=== PATIENT | female | born 1935 | race Caucasian/White ===

== ENCOUNTER 2023-03-13 11:04 | Inpatient (IN) | payer MEDICARE, OTHER ==
[2023-03-13 12:06] LABS: #Eosinphils 0.1 10x3/uL (0.0-0.5); #Monocytes 0.7 10x3/uL (0.0-1.1); #Neutrophils 2.4 10x3/uL (1.5-8.4); %Basophils 0.8 % (0.0-2.0); %Eosinophils 1.1 % (0.0-6.0); %Lymphocytes 40.1 % (18.0-47.0); %Monocytes 12.6 % (0.0-10.0); %Neutrophils 45.2 % (40.0-75.0); Hematocrit 34.8 % (34.9-44.5); Hemoglobin 12.9 g/dL (12.0-15.5); Mean Corpuscular HGB CONC 37.1 g/dL (32.0-36.0); Mean Corpuscular Hemoglobin 29.9 pg (27.0-33.0); Mean Corpuscular Volume 80.6 fl (81.6-98.3); Mean Platelet Volume 9.8 fl (7.4-10.4); Platelet Count 208 10x3/uL (150-450); RBC Distribution Width 11.7 % (11.5-14.5); Red Blood Cell (RBC) Count 4.32 10x6/uL (3.90-5.03); White Blood Cell (WBC) Count 5.3 10x3/uL (3.5-10.5)
[2023-03-13 12:24] LABS: Troponin I Less than 0.010 ng/mL (< 0.028)
[2023-03-13 12:28] LABS: ALT (SGPT) 12 U/L (8-55); AST (SGOT) 21 U/L (5-34); Albumin 3.1 g/dL (3.4-4.8); Alkaline Phosphatase 83 U/L (40-110); Anion Gap 16 mmol/L (10-20); BUN (Urea Nitrogen) 6 mg/dL (9.8-20.1); Bilirubin, Total 0.9 mg/dL (0.2-1.2); Calc. Creatinine Clearance 0 mL/min (70-130); Carbon Dioxide 15 mmol/L (23-31); Chloride 92 mmol/L (98-107); Estimated GFR 87; Globulin 2.2 g/dL (2.4-3.5); Glucose 88 mg/dL (83-110); Protein, Total 5.3 g/dL (5.8-8.1)
[2023-03-13 12:32] LABS: SARS-CoV-2 NAA Rapid Test Not Detected (NotDetected)
[2023-03-13 12:50] LABS: Critical Call Chemistry ERS.JM3@1249; Sodium 119 mmol/L (136-145)
[2023-03-13] MEDS ORDERED: Ondansetron PF 4 MG/2 ML Vial IVP PRN (13:19)
[2023-03-13] MEDS ORDERED: Acetaminophen 325 MG TAB PO PRN (13:19)
[2023-03-13] MEDS ORDERED: Sodium Chloride 0.9% 1,000 ML IV SCH (13:30)
[2023-03-13] MEDS ORDERED: Bacitracin 1 PK ONE (13:57)
[2023-03-13 14:52] LABS: Phosphorus 2.5 mg/dL (2.3-4.7)
[2023-03-13 14:54] LABS: Magnesium 1.3 mg/dL (1.6-2.6)
[2023-03-13 14:58] LABS: Cardiac Risk 3.7 (Less than 4.5)
[2023-03-13] MEDS ORDERED: Sodium Bicarbonate 150 MEQ in Dextrose 5% in Water 1,000 ML IV SCH (18:00)
[2023-03-13] MEDS ORDERED: Magnesium 2 GM/50 ML(in water) 2 GM in Premix 1 BAG IVPB SCH (18:00)
[2023-03-13 18:22] VITALS: BMI 23.3
[2023-03-13 18:55] LABS: Anion Gap 15 mmol/L (10-20); BUN (Urea Nitrogen) 6 mg/dL (9.8-20.1); Calc. Creatinine Clearance 67 mL/min (70-130); Calcium 8.5 mg/dL (7.8-10.44); Carbon Dioxide 17 mmol/L (23-31); Chloride 93 mmol/L (98-107); Estimated GFR 87; Glucose 77 mg/dL (83-110); Potassium 3.9 mmol/L (3.5-5.1); Sodium 121 mmol/L (136-145)
[2023-03-13 19:06] LABS: Free T4 (Free Thyroxine) 1.82 ng/dL (0.70-1.48)
[2023-03-13] MEDS: Famotidine 20 MG TAB PO SCH (20:25)
[2023-03-14 00:53] LABS: Anion Gap 10 mmol/L (10-20); BUN (Urea Nitrogen) 5 mg/dL (9.8-20.1); Calc. Creatinine Clearance 67 mL/min (70-130); Calcium 8.1 mg/dL (7.8-10.44); Carbon Dioxide 23 mmol/L (23-31); Chloride 93 mmol/L (98-107); Estimated GFR 87; Glucose 114 mg/dL (83-110); Potassium 3.5 mmol/L (3.5-5.1); Sodium 122 mmol/L (136-145)
[2023-03-14 03:27] LABS: Uric Acid 3.5 mg/dL (2.6-6.0)
[2023-03-14 06:28] LABS: Anion Gap 13 mmol/L (10-20); BUN (Urea Nitrogen) 4 mg/dL (9.8-20.1); Calc. Creatinine Clearance 66 mL/min (70-130); Calcium 7.9 mg/dL (7.8-10.44); Carbon Dioxide 21 mmol/L (23-31); Chloride 92 mmol/L (98-107); Estimated GFR 87; Glucose 116 mg/dL (83-110); Potassium 3.5 mmol/L (3.5-5.1); Sodium 122 mmol/L (136-145)
[2023-03-14] MEDS ORDERED: Albuterol 2.5 MG (3 mL) NEB NEB PRN (07:25)
[2023-03-14] MEDS ORDERED: Sodium Chloride 0.9% 1,000 ML IV SCH (07:30)
[2023-03-14] MEDS ORDERED: Levothyroxine Sodium 75 MCG TAB PO SCH (07:30)
[2023-03-14 07:50] LABS: Magnesium 1.8 mg/dL (1.6-2.6)
[2023-03-14] MEDS ORDERED: Potassium Chloride 20 MEQ TAB PO SCH (08:00)
[2023-03-14] MEDS: Sodium Bicarbonate Tab 325 MG TAB PO SCH ×3 (08:32→21:53)
[2023-03-14] MEDS: Famotidine 20 MG TAB PO SCH ×2 (08:34→21:53)
[2023-03-14] MEDS ORDERED: Potassium Bicarbonate/Cit Ac 20 MEQ TAB PO SCH (08:45)
[2023-03-14 12:52] LABS: Anion Gap 10 mmol/L (10-20); BUN (Urea Nitrogen) 4 mg/dL (9.8-20.1); Calc. Creatinine Clearance 60 mL/min (70-130); Calcium 8.3 mg/dL (7.8-10.44); Carbon Dioxide 24 mmol/L (23-31); Chloride 92 mmol/L (98-107); Estimated GFR 85; Glucose 115 mg/dL (83-110); Potassium 4.4 mmol/L (3.5-5.1); Sodium 122 mmol/L (136-145)
[2023-03-14] MEDS ORDERED: Magnesium 2 GM/50 ML(in water) 2 GM in Premix 1 BAG IVPB SCH (14:30)
[2023-03-14] MEDS: Montelukast Sodium 10 mg Tablet PO SCH (21:53)
[2023-03-15 04:14] LABS: #Eosinphils 0.2 10x3/uL (0.0-0.5); #Monocytes 0.5 10x3/uL (0.0-1.1); #Neutrophils 1.9 10x3/uL (1.5-8.4); %Basophils 0.9 % (0.0-2.0); %Eosinophils 4.3 % (0.0-6.0); %Lymphocytes 37.4 % (18.0-47.0); %Monocytes 11.1 % (0.0-10.0); %Neutrophils 46.1 % (40.0-75.0); Hematocrit 32.9 % (34.9-44.5); Hemoglobin 12.2 g/dL (12.0-15.5); Mean Corpuscular HGB CONC 37.1 g/dL (32.0-36.0); Mean Corpuscular Hemoglobin 30.2 pg (27.0-33.0); Mean Corpuscular Volume 81.4 fl (81.6-98.3); Platelet Count 187 10x3/uL (150-450); RBC Distribution Width 11.8 % (11.5-14.5); Red Blood Cell (RBC) Count 4.04 10x6/uL (3.90-5.03); White Blood Cell (WBC) Count 4.2 10x3/uL (3.5-10.5)
[2023-03-15 04:27] LABS: ALT (SGPT) 11 U/L (8-55); AST (SGOT) 16 U/L (5-34); Albumin 2.9 g/dL (3.4-4.8); Alkaline Phosphatase 78 U/L (40-110); Anion Gap 9 mmol/L (10-20); BUN (Urea Nitrogen) 4 mg/dL (9.8-20.1); Bilirubin, Total 0.5 mg/dL (0.2-1.2); Calc. Creatinine Clearance 67 mL/min (70-130); Calcium 8.1 mg/dL (7.8-10.44); Carbon Dioxide 22 mmol/L (23-31); Chloride 95 mmol/L (98-107); Estimated GFR 87; Globulin 2.2 g/dL (2.4-3.5); Glucose 101 mg/dL (83-110); Magnesium 1.9 mg/dL (1.6-2.6); Phosphorus 3.5 mg/dL (2.3-4.7); Potassium 4.5 mmol/L (3.5-5.1); Protein, Total 5.1 g/dL (5.8-8.1); Sodium 121 mmol/L (136-145)
[2023-03-15] MEDS ORDERED: Levothyroxine Sodium 75 MCG TAB PO SCH (06:00)
[2023-03-15] MEDS: Levothyroxine Sodium 50 MCG TAB PO SCH (06:08)
[2023-03-15] MEDS: Famotidine 20 MG TAB PO SCH ×2 (09:11→20:40)
[2023-03-15] MEDS: Sodium Bicarbonate Tab 325 MG TAB PO SCH ×2 (09:15→20:40)
[2023-03-15] MEDS ORDERED: Tolvaptan 15 MG TAB PO SCH (09:45)
[2023-03-15] MEDS ORDERED: Sodium Bicarbonate Tab 325 MG TAB PO SCH (11:30)
[2023-03-15 19:03] LABS: Potassium 4.8 mmol/L (3.5-5.1); Sodium 128 mmol/L (136-145)
[2023-03-15] MEDS: Montelukast Sodium 10 mg Tablet PO SCH (20:41)
[2023-03-16 05:36] LABS: Anion Gap 14 mmol/L (10-20); BUN (Urea Nitrogen) 8 mg/dL (9.8-20.1); Calc. Creatinine Clearance 61 mL/min (70-130); Calcium 8.8 mg/dL (7.8-10.44); Carbon Dioxide 20 mmol/L (23-31); Chloride 100 mmol/L (98-107); Estimated GFR 85; Glucose 95 mg/dL (83-110); Magnesium 1.8 mg/dL (1.6-2.6); Potassium 4.7 mmol/L (3.5-5.1); Sodium 129 mmol/L (136-145)
[2023-03-16] MEDS: Levothyroxine Sodium 50 MCG TAB PO SCH (06:38)
[2023-03-16] MEDS ORDERED: Magnesium 2 GM/50 ML(in water) 2 GM in Premix 1 BAG IVPB SCH (09:30)
[2023-03-16] MEDS: Sodium Bicarbonate Tab 325 MG TAB PO SCH ×3 (09:57→20:51)
[2023-03-16] MEDS: Famotidine 20 MG TAB PO SCH ×2 (09:58→20:51)
[2023-03-16] MEDS: Montelukast Sodium 10 mg Tablet PO SCH (22:45)
[2023-03-17 05:04] LABS: Anion Gap 14 mmol/L (10-20); BUN (Urea Nitrogen) 12 mg/dL (9.8-20.1); Calc. Creatinine Clearance 55 mL/min (70-130); Calcium 8.8 mg/dL (7.8-10.44); Carbon Dioxide 21 mmol/L (23-31); Chloride 97 mmol/L (98-107); Estimated GFR 79; Glucose 102 mg/dL (83-110); Potassium 4.9 mmol/L (3.5-5.1); Sodium 127 mmol/L (136-145)
[2023-03-17] MEDS: Levothyroxine Sodium 50 MCG TAB PO SCH (06:16)
[2023-03-17] MEDS: Sodium Bicarbonate Tab 325 MG TAB PO SCH ×2 (08:56→18:22)
[2023-03-17] MEDS: Famotidine 20 MG TAB PO SCH ×2 (08:56→20:14)
[2023-03-17 16:32] LABS: Anion Gap 12 mmol/L (10-20); BUN (Urea Nitrogen) 13 mg/dL (9.8-20.1); Calc. Creatinine Clearance 53 mL/min (70-130); Calcium 8.9 mg/dL (7.8-10.44); Carbon Dioxide 22 mmol/L (23-31); Chloride 96 mmol/L (98-107); Estimated GFR 76; Glucose 119 mg/dL (83-110); Potassium 4.9 mmol/L (3.5-5.1); Sodium 125 mmol/L (136-145)
[2023-03-17] MEDS: Montelukast Sodium 10 mg Tablet PO SCH (20:14)
[2023-03-17] MEDS ORDERED: Sodium Bicarbonate Tab 325 MG TAB PO SCH (20:45)
[2023-03-18 04:21] LABS: Anion Gap 14 mmol/L (10-20); BUN (Urea Nitrogen) 14 mg/dL (9.8-20.1); Calc. Creatinine Clearance 53 mL/min (70-130); Carbon Dioxide 21 mmol/L (23-31); Chloride 95 mmol/L (98-107); Estimated GFR 75; Glucose 102 mg/dL (83-110); Magnesium 1.6 mg/dL (1.6-2.6); Potassium 4.8 mmol/L (3.5-5.1); Sodium 125 mmol/L (136-145)
[2023-03-18] MEDS: Levothyroxine Sodium 50 MCG TAB PO SCH (05:17)
[2023-03-18] MEDS: Sodium Bicarbonate Tab 325 MG TAB PO SCH ×3 (09:56→20:30)
[2023-03-18] MEDS: Famotidine 20 MG TAB PO SCH ×2 (09:56→20:30)
[2023-03-18 12:35] LABS: Anion Gap 13 mmol/L (10-20); BUN (Urea Nitrogen) 15 mg/dL (9.8-20.1); Calc. Creatinine Clearance 53 mL/min (70-130); Calcium 9.2 mg/dL (7.8-10.44); Carbon Dioxide 22 mmol/L (23-31); Chloride 95 mmol/L (98-107); Estimated GFR 75; Glucose 102 mg/dL (83-110); Potassium 4.7 mmol/L (3.5-5.1); Sodium 125 mmol/L (136-145)
[2023-03-18] MEDS ORDERED: Tolvaptan 15 MG TAB PO SCH (12:45)
[2023-03-18] MEDS: Montelukast Sodium 10 mg Tablet PO SCH (20:31)
[2023-03-18 20:35] LABS: Anion Gap 13 mmol/L (10-20); BUN (Urea Nitrogen) 17 mg/dL (9.8-20.1); Calc. Creatinine Clearance 52 mL/min (70-130); Calcium 9.1 mg/dL (7.8-10.44); Carbon Dioxide 20 mmol/L (23-31); Chloride 98 mmol/L (98-107); Estimated GFR 74; Glucose 132 mg/dL (83-110); Potassium 4.3 mmol/L (3.5-5.1); Sodium 127 mmol/L (136-145)
[2023-03-19 03:40] LABS: #Basophils 0.1 10x3/uL (0.0-0.2); #Eosinphils 0.1 10x3/uL (0.0-0.5); #Monocytes 0.6 10x3/uL (0.0-1.1); #Neutrophils 2.8 10x3/uL (1.5-8.4); %Basophils 0.9 % (0.0-2.0); %Eosinophils 2.6 % (0.0-6.0); %Lymphocytes 34.5 % (18.0-47.0); %Monocytes 10.5 % (0.0-10.0); %Neutrophils 51.1 % (40.0-75.0); Hematocrit 40.2 % (34.9-44.5); Hemoglobin 14.4 g/dL (12.0-15.5); Mean Corpuscular HGB CONC 35.8 g/dL (32.0-36.0); Mean Corpuscular Hemoglobin 29.9 pg (27.0-33.0); Mean Corpuscular Volume 83.4 fl (81.6-98.3); Platelet Count 239 10x3/uL (150-450); RBC Distribution Width 11.8 % (11.5-14.5); Red Blood Cell (RBC) Count 4.82 10x6/uL (3.90-5.03); White Blood Cell (WBC) Count 5.4 10x3/uL (3.5-10.5)
[2023-03-19 04:15] LABS: Anion Gap 16 mmol/L (10-20); BUN (Urea Nitrogen) 17 mg/dL (9.8-20.1); Calc. Creatinine Clearance 51 mL/min (70-130); Calcium 9.3 mg/dL (7.8-10.44); Carbon Dioxide 21 mmol/L (23-31); Chloride 98 mmol/L (98-107); Estimated GFR 72; Glucose 106 mg/dL (83-110); Magnesium 1.8 mg/dL (1.6-2.6); Potassium 4.9 mmol/L (3.5-5.1); Sodium 130 mmol/L (136-145)
[2023-03-19] MEDS: Levothyroxine Sodium 50 MCG TAB PO SCH (05:30)
[2023-03-19] MEDS: Sodium Bicarbonate Tab 325 MG TAB PO SCH ×3 (09:54→20:50)
[2023-03-19] MEDS: Famotidine 20 MG TAB PO SCH ×2 (09:54→20:51)
[2023-03-19 15:16] LABS: Anion Gap 12 mmol/L (10-20); BUN (Urea Nitrogen) 17 mg/dL (9.8-20.1); Calc. Creatinine Clearance 47 mL/min (70-130); Calcium 9.4 mg/dL (7.8-10.44); Carbon Dioxide 24 mmol/L (23-31); Chloride 98 mmol/L (98-107); Estimated GFR 65; Glucose 118 mg/dL (83-110); Potassium 4.9 mmol/L (3.5-5.1); Sodium 129 mmol/L (136-145)
[2023-03-19] MEDS: Montelukast Sodium 10 mg Tablet PO SCH (20:51)
[2023-03-20 05:41] LABS: Anion Gap 12 mmol/L (10-20); BUN (Urea Nitrogen) 17 mg/dL (9.8-20.1); Calc. Creatinine Clearance 49 mL/min (70-130); Carbon Dioxide 24 mmol/L (23-31); Chloride 96 mmol/L (98-107); Estimated GFR 69; Glucose 107 mg/dL (83-110); Magnesium 1.8 mg/dL (1.6-2.6); Potassium 4.6 mmol/L (3.5-5.1); Sodium 127 mmol/L (136-145)
[2023-03-20] MEDS: Levothyroxine Sodium 50 MCG TAB PO SCH (06:03)
[2023-03-20] MEDS: Sodium Bicarbonate Tab 325 MG TAB PO SCH ×3 (10:15→20:58)
[2023-03-20] MEDS: Famotidine 20 MG TAB PO SCH ×2 (10:17→20:59)
[2023-03-20] MEDS ORDERED: Sodium Chloride 1 GM TAB PO SCH (11:00)
[2023-03-20] MEDS: Sodium Chloride 1 GM TAB PO SCH ×2 (16:59→20:59)
[2023-03-20] MEDS: Montelukast Sodium 10 mg Tablet PO SCH (20:59)
[2023-03-21 05:44] LABS: Anion Gap 11 mmol/L (10-20); BUN (Urea Nitrogen) 23 mg/dL (9.8-20.1); Calc. Creatinine Clearance 49 mL/min (70-130); Calcium 8.9 mg/dL (7.8-10.44); Carbon Dioxide 24 mmol/L (23-31); Chloride 99 mmol/L (98-107); Estimated GFR 70; Glucose 98 mg/dL (83-110); Magnesium 1.8 mg/dL (1.6-2.6); Potassium 4.6 mmol/L (3.5-5.1); Sodium 129 mmol/L (136-145)
[2023-03-21] MEDS: Levothyroxine Sodium 50 MCG TAB PO SCH (06:34)
[2023-03-21] MEDS: Famotidine 20 MG TAB PO SCH (09:11)
[2023-03-21] MEDS: Sodium Bicarbonate Tab 325 MG TAB PO SCH ×2 (09:12→16:21)
[2023-03-21] MEDS: Sodium Chloride 1 GM TAB PO SCH ×2 (09:12→16:22)
[2023-03-21 13:03] VITALS: TEMP 97.5
[2023-03-21 13:19] VITALS: BP 121/78
[2023-03-21 13:41] LABS: Anion Gap 12 mmol/L (10-20); BUN (Urea Nitrogen) 24 mg/dL (9.8-20.1); Calc. Creatinine Clearance 49 mL/min (70-130); Carbon Dioxide 22 mmol/L (23-31); Chloride 100 mmol/L (98-107); Estimated GFR 70; Glucose 109 mg/dL (83-110); Potassium 4.8 mmol/L (3.5-5.1); Sodium 129 mmol/L (136-145)
== END 2023-03-21 17:25 | disposition home or self-care (01) | DRG 644 ==
LOC: CSHERS 11:04 → CSHTELE 16:54
PROVIDERS: ADMIT Family Medicine; ATTEND Internal Medicine
DX: E22.2 Syndrome of inappropriate secretion of antidiuretic hormone (principal); E87.20 Acidosis, unspecified; E03.9 Hypothyroidism, unspecified; J45.909 Unspecified asthma, uncomplicated; K21.9 Gastro-esophageal reflux disease without esophagitis; E86.0 Dehydration; E83.42 Hypomagnesemia; E88.09 Other disorders of plasma-protein metabolism, not elsewhere classified; E87.6 Hypokalemia; N18.2 Chronic kidney disease, stage 2 (mild); E87.8 Other disorders of electrolyte and fluid balance, not elsewhere classified; E86.1 Hypovolemia; Z98.890 Other specified postprocedural states; Z98.51 Tubal ligation status; Z90.49 Acquired absence of other specified parts of digestive tract; Z90.710 Acquired absence of both cervix and uterus; Z88.1 Allergy status to other antibiotic agents; Z88.8 Allergy status to other drugs, medicaments and biological substances; Z88.2 Allergy status to sulfonamides; Z11.52 Encounter for screening for COVID-19; Z79.51 Long term (current) use of inhaled steroids; Z79.899 Other long term (current) drug therapy
CPT/HCPCS: 36415; 70450; 71045; 74018; 80048; 80053; 80061; 83735; 83930; 83935; 84100; 84300; 84439; 84443; 84481; 84484; 84550; 85025; 93005; 97139; J2405; J3475; J7050; J7070